=== PATIENT | male | born 1955 | race Caucasian/White ===

== ENCOUNTER 2018-01-24 21:49 | Inpatient (IN) | payer OTHER, MEDICAID ==
[~2018-01-24] VITALS: Ht 172.7 cm; Wt 109.3 kg
[2018-01-25 01:00] LABS: BASOPHILS % 0.4 % (0.0-2.0); EOSINOPHILS % 1.8 % (0.0-5.0); HEMATOCRIT. 41.1 % (42.0-52.0); HEMOGLOBIN. 14.1 g/dL (14.0-18.0); LYMPHOCYTES % 26.9 % (20.0-50.0); MEAN CORPUSCULAR HEMOGLOBIN 27.4 pg (28.0-32.0); MEAN CORPUSCULAR VOLUME 80.3 fL (80.0-94.0); MEAN PLATELET VOLUME 7.8 fl (7.4-10.4); MONOCYTES % 10.7 % (2.0-8.0); NEUTROPHILS % 60.2 % (40.0-76.0); PLATELET 272 x1000/uL (130-400); RED BLOOD CELL COUNT 5.12 mill/uL (4.7-6.1); RED CELL DISTRIBUTION WIDTH 16.8 % (11.6-14.6)
[2018-01-25 01:03] LABS: CHLORIDE 105 mEq/L (98-107); INR 1.1; PROTHROMBIN TIME 11.6 sec (9.4-11.6)
[2018-01-25 01:14] LABS: CREATINE KINASE MB FRACTION 6.2 ng/mL (0.5-3.6)
[2018-01-25] MEDS ORDERED: ASPIRIN 81MG TABLET PO NR (04:15)
[2018-01-25] MEDS ORDERED: NITROGLYCERIN OINT 1GM/INCH UDPKT TD NR (04:15)
[2018-01-25 05:43] LABS: ETHANOL BLOOD < 10 mg/dL
[2018-01-25 08:26] VITALS: BP 119/78
[2018-01-25] MEDS ORDERED: TRAMADOL 50MG TABLET PO PRN (08:30)
[2018-01-25] MEDS ORDERED: NA PHOS,M-B/NA PHOS,DI-BA ENEMA 118ML PR PRN (08:30)
[2018-01-25] MEDS ORDERED: NITROGLYCERIN 0.4MG TABLET SL SL PRN (08:30)
[2018-01-25] MEDS ORDERED: MAGNESIUM/ALUMINUM HYDROXIDE/SIMETHICONE 30ML UDC PO PRN (08:30)
[2018-01-25] MEDS ORDERED: DOCUSATE SODIUM 100MG CAPSULE PO PRN (08:30)
[2018-01-25] MEDS ORDERED: ONDANSETRON HCL 4MG/2ML VIAL IV PRN (08:30)
[2018-01-25] MEDS ORDERED: DIPHENHYDRAMINE 50MG/ML VIAL IV PRN (08:30)
[2018-01-25] MEDS ORDERED: LORAZEPAM 0.5MG TABLET PO PRN (08:30)
[2018-01-25] MEDS ORDERED: CLONIDINE 0.1MG TABLET PO PRN (08:30)
[2018-01-25] MEDS ORDERED: ACETAMINOPHEN 325MG TABLET PO PRN (08:30)
[2018-01-25] MEDS ORDERED: GUAIFENESIN 200MG/10ML SUGAR FREE UDC PO PRN (08:30)
[2018-01-25] MEDS ORDERED: IPRATROPIUM/ALBUTEROL 0.5-3(2.5)MG/3ML NEB INH PRN (08:30)
[2018-01-25] MEDS ORDERED: KETOROLAC 15MG/ML VIAL IV PRN (08:30)
[2018-01-25] MEDS ORDERED: omeprazole (08:32)
[2018-01-25] MEDS ORDERED: carvedilol (08:32)
[2018-01-25] MEDS ORDERED: tamsulosin (08:32)
[2018-01-25] MEDS ORDERED: NITROGLYCERIN (08:32)
[2018-01-25] MEDS ORDERED: lipitor (08:32)
[2018-01-25 08:45] VITALS: BP 119/78
[2018-01-25] MEDS ORDERED: ONDANSETRON 4MG ODT PO PRN (08:45)
[2018-01-25] MEDS: ENOXAPARIN 40MG/0.4ML SYR SUBCUT SCH (09:00)
[2018-01-25] MEDS: ASPIRIN 325MG EC TABLET PO SCH (09:00)
[2018-01-25] MEDS: FAMOTIDINE 20MG TABLET PO SCH ×2 (09:56→21:15)
[2018-01-25] MEDS: GUAIFENESIN 600MG ER TABLET PO SCH ×2 (09:56→21:15)
[2018-01-25] MEDS: CARVEDILOL 3.125 MG TABLET PO SCH ×2 (11:45→21:00)
[2018-01-25 12:00] VITALS: BP 97/61
[2018-01-25] MEDS: TAMSULOSIN HCL 0.4MG SR CAPSULE PO SCH (13:55)
[2018-01-25] MEDS ORDERED: POTASSIUM CHLORIDE 20MEQ/PACKET PO NR (14:15)
[2018-01-25] MEDS ORDERED: IPRATROPIUM/ALBUTEROL 0.5-3(2.5)MG/3ML NEB HHN PRN (15:30)
[2018-01-25 16:00] VITALS: BP 112/74
[2018-01-25 16:29] LABS: CREATINE KINASE 319 IU/L (39-308)
[2018-01-25 16:30] LABS: CREATINE KINASE MB FRACTION 4.4 ng/mL (0.5-3.6)
[2018-01-25 17:31] LABS: *AMPHETAMINES SCREEN URINE PRESUMTIVE POSITIVE (NEGATIVE); *BARBITURATES SCREEN URINE NEGATIVE (NEGATIVE); CANNABINOID URINE SCREEN NEGATIVE (NEGATIVE)
[2018-01-25 17:32] LABS: *BENZODIAZEPINES SCREEN URINE NEGATIVE (NEGATIVE); *COCAINE SCREEN URINE NEGATIVE (NEGATIVE)
[2018-01-25 17:34] LABS: METHADONE URINE SCREEN NEGATIVE (NEGATIVE); OPIATES URINE SCREEN NEGATIVE (NEGATIVE); PHENCYCLIDINE URINE SCREEN NEGATIVE (NEGATIVE)
[2018-01-25 20:00] VITALS: BP 97/60
[2018-01-25] MEDS ORDERED: ZOLPIDEM TARTRATE 5MG TABLET PO PRN (21:00)
[2018-01-25] MEDS ORDERED: ATORVASTATIN CALCIUM 10MG TABLET PO SCH (21:00)
[2018-01-25] MEDS: IPRATROPIUM/ALBUTEROL 0.5-3(2.5)MG/3ML NEB HHN SCH (21:12)
[2018-01-26] VITALS: BP 108/70
[2018-01-26 00:20] LABS: CREATINE KINASE 275 IU/L (39-308)
[2018-01-26 00:21] LABS: CREATINE KINASE MB FRACTION 3.8 ng/mL (0.5-3.6)
[2018-01-26] MEDS: IPRATROPIUM/ALBUTEROL 0.5-3(2.5)MG/3ML NEB HHN SCH ×3 (01:40→12:58)
[2018-01-26 04:00] VITALS: BP 118/67
[2018-01-26 08:00] VITALS: BP 124/84
[2018-01-26] MEDS: GUAIFENESIN 600MG ER TABLET PO SCH (08:47)
[2018-01-26] MEDS: ASPIRIN 325MG EC TABLET PO SCH (08:47)
[2018-01-26] MEDS: FAMOTIDINE 20MG TABLET PO SCH (08:47)
[2018-01-26] MEDS: TAMSULOSIN HCL 0.4MG SR CAPSULE PO SCH (08:47)
[2018-01-26] MEDS: CARVEDILOL 3.125 MG TABLET PO SCH (08:47)
[2018-01-26] MEDS: ENOXAPARIN 40MG/0.4ML SYR SUBCUT SCH (08:48)
[2018-01-26 11:54] VITALS: BP 116/82
[2018-01-26 16:25] VITALS: BP 126/80
[2018-01-26 20:11] VITALS: BP 117/83
== END 2018-01-26 20:45 | disposition short-term general hospital (02) | DRG 302 ==
LOC: ER 21:49 → 6WST 01-25 05:07 → ENRESERV 01-25 07:01
PROVIDERS: ADMIT Internal Medicine; ATTEND Internal Medicine
PROC: 5A09357 Assistance with Respiratory Ventilation, Less than 24 Consecutive Hours, Continuous Positive Airway Pressure (ICD-10-PCS; principal; 2018-01-25)
DX: I25.110 Atherosclerotic heart disease of native coronary artery with unstable angina pectoris (principal); J96.00 Acute respiratory failure, unspecified whether with hypoxia or hypercapnia; J68.0 Bronchitis and pneumonitis due to chemicals, gases, fumes and vapors; E66.9 Obesity, unspecified; E78.00 Pure hypercholesterolemia, unspecified; E87.6 Hypokalemia; G47.33 Obstructive sleep apnea (adult) (pediatric); I10 Essential (primary) hypertension; N40.0 Benign prostatic hyperplasia without lower urinary tract symptoms; G62.9 Polyneuropathy, unspecified; B34.9 Viral infection, unspecified; I25.2 Old myocardial infarction; Z79.82 Long term (current) use of aspirin; Z79.899 Other long term (current) drug therapy; Z68.36 Body mass index [BMI] 36.0-36.9, adult
CPT/HCPCS: 36415; 71045; 80053; 80061; 80305; 82550; 82553; 83036; 83880; 84484; 85025; 85610; 93005; 93306; 93970; G0482; J1650; J7620